=== PATIENT | female | born 1940 | race African-American/Black ===

== ENCOUNTER → 2017-01-08 | Outpatient (CLI) | payer MEDICARE, MEDICAID ==
[~2017-01-08] MED LIST: BETIMOL 0.5% OPH5 ML; BETIMOL 0.5% OPH5 ML OU; FLEXERIL 1010 MG/TAB PO; LIPITOR 40MG TA40 MG PO; MEDROL 4MG DOSPA4 MG PO; MEDROL8 M1 PO; NORCO 325 MG-51 TAB PO; NORVASC2.5 MG PO; PERCOCET 325 MG1 TA2 PO; PLAVIX 75MG TAB75 MG PO; TIROSINT25 MC1 PO; XALATAN EYE DROPS OD
[2017-01-08 10:23] LABS: CALCIUM 9.3 mg/dL (8.4-10.2); CREATININE, serum 1.25 mg/dL (0.52-1.25); POTASSIUM 4.7 mmol/L (3.4-5.0)
== END ==
LOC: COL.RAD 09:24
PROVIDERS: Thoracic Surgery (Cardiothoracic Vascular Surgery)
DX: I65.23 Occlusion and stenosis of bilateral carotid arteries (principal); Z01.812 Encounter for preprocedural laboratory examination
CPT/HCPCS: Q9967

== ENCOUNTER 2017-02-26 07:15 | Emergency (ER) | payer OTHER, MEDICAID ==
[~2017-02-26] VITALS: Ht 160 cm; Wt 63.6 kg
[~2017-02-26 07:15] MED LIST changes: -FLEXERIL 1010 MG/TAB PO; -MEDROL 4MG DOSPA4 MG PO
[2017-02-26 07:18] VITALS: BP 160/80; PULSE 95; TEMP 97.9
[2017-02-26] MEDS ORDERED: FLEXERIL 1010 MG/TAB PO (07:51)
[2017-02-26] MEDS ORDERED: MEDROL 4MG DOSPA4 MG PO (07:53)
[2017-02-26] MEDS ORDERED: PERCOCET 325 MG1 TA2 PO (07:53)
== END 2017-02-26 09:07 | disposition home or self-care (01) ==
LOC: COL.ER 07:15
DX: M25.551 Pain in right hip (principal); I10 Essential (primary) hypertension

== ENCOUNTER 2017-12-13 08:34 | Observation (INO) | payer OTHER, MEDICAID ==
[~2017-12-13] VITALS: Ht 160 cm; Wt 62.4 kg
[~2017-12-13 08:34] MED LIST changes: +FLEXERIL 1010 MG/TAB PO; +MEDROL 4MG DOSPA4 MG PO
[2017-12-13 08:59] LABS: BASO # 0.1 (0.0-0.2); BASO % 0.8 % (0.0-2.0); EOS # 0.1 (0.0-0.7); EOS % 1.5 % (0-4.0); GRAN # 4.2 (1.4-6.5); GRAN % 64.5 % (42.2-75.2); HEMATOCRIT 34.4 % (37.0-47.0); HEMOGLOBIN 10.3 g/dl (12.5-16.0); LYMPH # 1.7 (1.2-3.4); LYMPH % 26.9 % (20.0-51.0); MEAN CELL VOLUME 75 fl (80.0-100.0); MEAN CORPUSCULAR HEMOGLOBIN 23 pg (27.0-31.0); MEAN CORPUSCULAR HGB CONC 30 g/dl (33.0-37.0); MEAN PLATELET VOLUME 9.9 fl (7.4-10.4); MONO # 0.4 (0.1-0.6); PLATELET COUNT 327 K/mm3 (130-400); RED BLOOD COUNT 4.56 M/mm3 (4.10-5.30); REDCELL DISTRIBUTION WIDTH-CV 17.9 % (11.5-14.5)
[2017-12-13 09:07] LABS: ALANINE AMINOTRANSFERASE 39 U/L (9-52); ALBUMIN 3.1 gm/dL (3.5-5.0); ALKALINE PHOSPHATASE 75 U/L (50-136); ANION GAP 7 mmol/L (7-16); AST,SGOT 39 U/L (15-37); BILIRUBIN,TOTAL 0.3 mg/dL (0.0-1.0); BLOOD UREA NITROGEN 16 mg/dL (7-17); CALCIUM 8.1 mg/dL (8.4-10.2); CARBON DIOXIDE 22 mmol/L (22-30); CHLORIDE 110 mmol/L (98-107); CREATININE, serum 1.19 mg/dL (0.52-1.25); GLUCOSE 116 mg/dL (74-106); SODIUM 139 mmol/L (137-145); TOTAL PROTEIN 6.1 gm/dL (6.4-8.2)
[2017-12-13 09:12] LABS: ALCOHOL(ethanol),MEDICAL < 10 mg/dL
[2017-12-13 13:12] VITALS: BP 163/86; PULSE 104; TEMP 98.6
[2017-12-13] MEDS ORDERED: PRINIVIL5 MG PO (15:04)
[2017-12-13 17:36] VITALS: BP 129/81; PULSE 95; TEMP 98.3
[2017-12-13 21:58] VITALS: BP 128/60; PULSE 67; TEMP 98.5
[2017-12-14] VITALS (7 sets, daily range): BP systolic 100–121; BP diastolic 46–90; PULSE 87–100; TEMP 97.2–100.5
[2017-12-14 09:10] LABS: BASO % 0.5 % (0.0-2.0); EOS # 0.2 (0.0-0.7); EOS % 2.8 % (0-4.0); GRAN # 3.6 (1.4-6.5); GRAN % 60.2 % (42.2-75.2); LYMPH # 1.8 (1.2-3.4); MEAN CELL VOLUME 76 fl (80.0-100.0); MEAN CORPUSCULAR HGB CONC 30 g/dl (33.0-37.0); MEAN PLATELET VOLUME 9.9 fl (7.4-10.4); MONO # 0.4 (0.1-0.6); MONO % 7.3 % (1.7-9.3); PLATELET COUNT 304 K/mm3 (130-400); RED BLOOD COUNT 3.98 M/mm3 (4.10-5.30); REDCELL DISTRIBUTION WIDTH-CV 17.8 % (11.5-14.5)
[2017-12-14 09:13] LABS: HEMATOCRIT 30.3 % (37.0-47.0); MEAN CORPUSCULAR HEMOGLOBIN 23 pg (27.0-31.0)
[2017-12-14 09:22] LABS: ALBUMIN 2.8 gm/dL (3.5-5.0); CREATININE, serum 1.15 mg/dL (0.52-1.25); PHOSPHOROUS 3.1 mg/dL (2.5-4.5); POTASSIUM 4.3 mmol/L (3.4-5.0)
[2017-12-14] MEDS ORDERED: PERCOCET 325 MG1 TA2 PO (10:06)
[2017-12-15 05:41] VITALS: BP 108/53; PULSE 88; TEMP 98.7
[2017-12-15 06:49] LABS: BASO % 0.5 % (0.0-2.0); EOS # 0.3 (0.0-0.7); EOS % 4.1 % (0-4.0); GRAN # 3.2 (1.4-6.5); GRAN % 52.4 % (42.2-75.2); LYMPH # 1.9 (1.2-3.4); LYMPH % 31.4 % (20.0-51.0); MEAN CELL VOLUME 76 fl (80.0-100.0); MEAN CORPUSCULAR HGB CONC 28 g/dl (33.0-37.0); MONO # 0.7 (0.1-0.6); MONO % 11.4 % (1.7-9.3); PLATELET COUNT 265 K/mm3 (130-400); RED BLOOD COUNT 4.57 M/mm3 (4.10-5.30)
[2017-12-15 06:52] LABS: HEMATOCRIT 34.5 % (37.0-47.0); HEMOGLOBIN 9.7 g/dl (12.5-16.0); MEAN CORPUSCULAR HEMOGLOBIN 21 pg (27.0-31.0)
[2017-12-15 06:54] LABS: CALCIUM 8.8 mg/dL (8.4-10.2); CREATININE, serum 1.13 mg/dL (0.52-1.25); POTASSIUM 4.3 mmol/L (3.4-5.0)
[2017-12-15 09:41] VITALS: BP 94/62; PULSE 87; TEMP 98.6
[2017-12-15 10:20] VITALS: BP 110/52; BP 90/43; BP 99/51; PULSE 82; PULSE 87; PULSE 88
[2017-12-15 13:35] VITALS: BP 111/61; PULSE 79; TEMP 98.2
[2017-12-15 18:14] VITALS: BP 116/60; PULSE 79; TEMP 99.5
[2017-12-15 20:52] VITALS: BP 93/44; PULSE 91; TEMP 98.5
[2017-12-16 01:37] VITALS: BP 100/54; PULSE 86; TEMP 98.7
[2017-12-16 04:37] VITALS: BP 99/52; PULSE 85; TEMP 98.1
[2017-12-16 07:45] VITALS: BP 105/61; PULSE 79
[2017-12-16 11:38] VITALS: BP 102/52; PULSE 87; TEMP 98.1
[2017-12-16 15:50] VITALS: BP 105/90; PULSE 95; TEMP 98.6
== END 2017-12-16 16:38 | disposition home or self-care (01) ==
LOC: COL.ER 08:34 → JCC 10:54
PROVIDERS: Family Medicine; Surgery
DX: S82.831A Other fracture of upper and lower end of right fibula, initial encounter for closed fracture (principal); S42.301A Unspecified fracture of shaft of humerus, right arm, initial encounter for closed fracture; J98.11 Atelectasis; I51.7 Cardiomegaly; S20.211A Contusion of right front wall of thorax, initial encounter; S80.02XA Contusion of left knee, initial encounter; I10 Essential (primary) hypertension; H40.9 Unspecified glaucoma; Z86.73 Personal history of transient ischemic attack (TIA), and cerebral infarction without residual deficits; Z87.891 Personal history of nicotine dependence; Z80.3 Family history of malignant neoplasm of breast; E03.9 Hypothyroidism, unspecified; Z85.89 Personal history of malignant neoplasm of other organs and systems; Z92.3 Personal history of irradiation; Z92.21 Personal history of antineoplastic chemotherapy; Z79.01 Long term (current) use of anticoagulants; V43.52XA Car driver injured in collision with other type car in traffic accident, initial encounter; Y92.410 Unspecified street and highway as the place of occurrence of the external cause
CPT/HCPCS: A9284; G0378; G8987-GO; G8988-GO; J1170; J2405; J7030; J7120

== ENCOUNTER 2018-02-27 12:49 | Outpatient (CLI) | payer OTHER, MEDICAID ==
[~2018-02-27] VITALS: Ht 160 cm; Wt 60.9 kg
[~2018-02-27 12:49] MED LIST changes: +PRINIVIL5 MG PO; -TIROSINT25 MC1 PO; +TIROSINT75 MC1 PO
[2018-02-27 13:19] VITALS: BP 128/73; PULSE 90; TEMP 97.9
[2018-02-27] MEDS ORDERED: ASPIRIN 81M81 MG/TA2 PO (13:25)
[2018-02-27] MEDS ORDERED: LIPITOR 40MG TA40 MG PO (13:30)
== END 2018-02-27 13:56 | disposition home or self-care (01) ==
LOC: EUO 12:49
DX: M81.0 Age-related osteoporosis without current pathological fracture (principal)
CPT/HCPCS: J3489

== ENCOUNTER 2019-02-23 07:23 | Emergency (ER) | payer MEDICARE ==
[~2019-02-23] VITALS: Ht 157.5 cm; Wt 68.2 kg
[~2019-02-23 07:23] MED LIST changes: +ASPIRIN 81M81 MG/TA2 PO
[2019-02-23 07:25] VITALS: TEMP 97
[2019-02-23] MEDS ORDERED: NORVASC2.5 MG PO (07:37)
[2019-02-23] MEDS ORDERED: PEPCID 20MG TAB20 MG PO (07:38)
[2019-02-23 07:59] LABS: BASO # 0.1 (0.0-0.2); BASO % 0.8 % (0.0-2.0); EOS # 0.2 (0.0-0.7); EOS % 3.6 % (0-4.0); GRAN # 3.7 (1.4-6.5); GRAN % 59.9 % (42.2-75.2); HEMATOCRIT 29.7 % (37.0-47.0); HEMOGLOBIN 8.6 g/dl (12.5-16.0); LYMPH # 1.7 (1.2-3.4); LYMPH % 27.8 % (20.0-51.0); MEAN CELL VOLUME 71 fl (80.0-100.0); MEAN CORPUSCULAR HEMOGLOBIN 21 pg (27.0-31.0); MEAN CORPUSCULAR HGB CONC 29 g/dl (33.0-37.0); MEAN PLATELET VOLUME 9.9 fl (7.4-10.4); MONO # 0.5 (0.1-0.6); MONO % 7.7 % (1.7-9.3); PLATELET COUNT 386 K/mm3 (130-400); RED BLOOD COUNT 4.16 M/mm3 (4.10-5.30); REDCELL DISTRIBUTION WIDTH-CV 19.4 % (11.5-14.5)
[2019-02-23 08:14] LABS: ALBUMIN 3.1 gm/dL (3.5-5.0); BILIRUBIN,TOTAL 0.2 mg/dL (0.0-1.0); CALCIUM 8.1 mg/dL (8.4-10.2); CREATININE, serum 1.22 (0.52-1.25); SALICYLATE 1.3 mg/dL; TOTAL PROTEIN 6.4 gm/dL (6.4-8.2)
[2019-02-23] MEDS ORDERED: NEURONTIN300 MG/CAP PO (08:42)
[2019-02-23 08:44] LABS: TSH w REFLEX 35.6 uIU/mL (0.465-4.680)
[2019-02-23] MEDS ORDERED: SYNTHROID0.1 MG/TAB PO (09:27)
[2019-02-23 09:38] VITALS: BP 160/85; PULSE 89
== END 2019-02-23 09:39 | disposition home or self-care (01) ==
LOC: COL.ER 07:23
PROVIDERS: Emergency Medicine
DX: R25.2 Cramp and spasm (principal); E03.9 Hypothyroidism, unspecified; I10 Essential (primary) hypertension; Z79.02 Long term (current) use of antithrombotics/antiplatelets; Z79.82 Long term (current) use of aspirin
CPT/HCPCS: J7030

== ENCOUNTER 2019-04-09 10:32 | Emergency (ER) | payer MEDICARE ==
[~2019-04-09] VITALS: Ht 157.5 cm; Wt 68.2 kg
[~2019-04-09 10:32] MED LIST changes: +NEURONTIN300 MG/CAP PO; +PEPCID 20MG TAB20 MG PO; +SYNTHROID0.1 MG/TAB PO
[2019-04-09 10:36] VITALS: TEMP 97.3
[2019-04-09 11:21] LABS: BASO % 0.4 % (0.0-2.0); EOS # 0.2 (0.0-0.7); EOS % 2.4 % (0-4.0); GRAN # 5.1 (1.4-6.5); GRAN % 73.5 % (42.2-75.2); LYMPH % 14.5 % (20.0-51.0); MEAN CORPUSCULAR HGB CONC 29 g/dl (33.0-37.0); MEAN PLATELET VOLUME 9.8 fl (7.4-10.4); MONO # 0.6 (0.1-0.6); MONO % 8.9 % (1.7-9.3); PLATELET COUNT 395 K/mm3 (130-400); RED BLOOD COUNT 4.47 M/mm3 (4.10-5.30); REDCELL DISTRIBUTION WIDTH-CV 20.7 % (11.5-14.5)
[2019-04-09 11:33] LABS: HEMATOCRIT 29.7 % (37.0-47.0); HEMOGLOBIN 8.5 g/dl (12.5-16.0); MEAN CELL VOLUME 66 fl (80.0-100.0); MEAN CORPUSCULAR HEMOGLOBIN 19 pg (27.0-31.0)
[2019-04-09 11:34] LABS: ALBUMIN 3.2 gm/dL (3.5-5.0); BILIRUBIN,TOTAL 0.3 mg/dL (0.0-1.0); CALCIUM 8.7 mg/dL (8.4-10.2); CREATININE, serum 1.89 (0.52-1.25); POTASSIUM 4.5 mmol/L (3.4-5.0); TOTAL PROTEIN 6.7 gm/dL (6.4-8.2)
[2019-04-09 12:28] LABS: COLLECTION METHOD CATHETER
[2019-04-09 12:37] LABS: MUCOUS Present /lpf; PH 5 (5-8); SQUAMOUS EPITHELIAL 0-2 /hpf; URINE APPEARANCE Hazy; URINE BACTERIA None Seen /hpf; URINE BILIRUBIN Negative (NEGATIVE); URINE BLOOD Negative (NEGATIVE); URINE COLOR Yellow; URINE GLUCOSE Negative (NEGATIVE); URINE KETONE Negative (NEGATIVE); URINE LEUKOCYTE ESTERASE Negative (NEGATIVE); URINE NITRATE Negative (NEGATIVE); URINE PROTEIN(semi-quant) Negative (NEGATIVE); URINE RBC 0-2 /hpf; URINE UROBILINOGEN Negative (NEGATIVE)
[2019-04-09 14:00] VITALS: BP 127/60; PULSE 98
== END 2019-04-09 14:35 | disposition home or self-care (01) ==
LOC: COL.ER 10:32
PROVIDERS: Emergency Medicine
DX: R19.7 Diarrhea, unspecified (principal); E86.0 Dehydration; N28.89 Other specified disorders of kidney and ureter; Z79.02 Long term (current) use of antithrombotics/antiplatelets; Z79.82 Long term (current) use of aspirin
CPT/HCPCS: J7030

== ENCOUNTER 2019-08-03 13:47 | Emergency (ER) | payer MEDICARE ==
[~2019-08-03] VITALS: Ht 157.5 cm; Wt 66.4 kg
[2019-08-03 14:00] VITALS: BP 109/66; TEMP 98.7
[2019-08-03 14:46] LABS: BASO % 0.3 % (0.0-2.0); EOS % 0.3 % (0-4.0); GRAN # 3.8 (1.4-6.5); GRAN % 59.3 % (42.2-75.2); LYMPH # 1.9 (1.2-3.4); LYMPH % 29.9 % (20.0-51.0); MEAN CELL VOLUME 63 fl (80.0-100.0); MEAN CORPUSCULAR HGB CONC 27 g/dl (33.0-37.0); MEAN PLATELET VOLUME 9.7 fl (7.4-10.4); MONO # 0.6 (0.1-0.6); MONO % 9.9 % (1.7-9.3); PLATELET COUNT 357 K/mm3 (130-400); RED BLOOD COUNT 3.26 M/mm3 (4.10-5.30); REDCELL DISTRIBUTION WIDTH-CV 22.7 % (11.5-14.5)
[2019-08-03 14:48] LABS: HEMATOCRIT 20.6 % (37.0-47.0); MEAN CORPUSCULAR HEMOGLOBIN 17 pg (27.0-31.0)
[2019-08-03 14:49] LABS: HEMOGLOBIN 5.5 g/dl (12.5-16.0)
[2019-08-03 14:56] LABS: ALBUMIN 3.3 gm/dL (3.5-5.0); BILIRUBIN,TOTAL 0.3 mg/dL (0.0-1.0); CALCIUM 8.2 mg/dL (8.4-10.2); CREATININE, serum 1.38 (0.52-1.25); POTASSIUM 4.8 mmol/L (3.4-5.0); TOTAL PROTEIN 6.7 gm/dL (6.4-8.2)
[2019-08-03] MEDS ORDERED: NATURAL IRON65 MG PO ×2 (15:17→17:18)
[2019-08-03 16:00] VITALS: PULSE 94
[2019-08-03] MEDS ORDERED: NEURONTIN300 MG/CAP PO (17:18)
[2019-08-03] MEDS ORDERED: SYNTHROID0.1 MG/TAB PO (17:20)
== END 2019-08-03 15:57 | disposition home or self-care (01) ==
LOC: COL.ER 13:47 → EUO 13:47 → COL.ER 15:57
PROVIDERS: Physician Assistant
DX: D64.9 Anemia, unspecified (principal); E03.9 Hypothyroidism, unspecified; I10 Essential (primary) hypertension; Z85.850 Personal history of malignant neoplasm of thyroid; Z79.02 Long term (current) use of antithrombotics/antiplatelets; Z79.82 Long term (current) use of aspirin
CPT/HCPCS: J7030

== ENCOUNTER 2019-08-03 16:14 | Outpatient (CLI) | payer MEDICARE ==
[~2019-08-03] VITALS: Ht 157.5 cm; Wt 66.2 kg
[~2019-08-03 16:14] MED LIST changes: +NATURAL IRON65 MG PO
--- NOTE | 2019-08-03 16:30 | NUR ---
Pt transferred from ED by for blood transfusion x 1 unit. 18 gauge IV noted to left AC and 20 gauge IV to right AC. Discontinued 20 gauge intact at pt request. Denies pain and needs at this time.
[2019-08-03 17:03] VITALS: BP 124/40; PULSE 87; TEMP 98.1
[2019-08-03 17:18] VITALS: BP 106/88; PULSE 84; TEMP 98
[2019-08-03] MEDS ORDERED: NEURONTIN300 MG/CAP PO (17:18)
[2019-08-03] MEDS ORDERED: NATURAL IRON65 MG PO (17:18)
[2019-08-03] MEDS ORDERED: SYNTHROID0.1 MG/TAB PO (17:20)
[2019-08-03 17:25] VITALS: BP 106/88; PULSE 84; TEMP 98
[2019-08-03 17:48] VITALS: BP 112/88; PULSE 86; TEMP 98
[2019-08-03 18:26] VITALS: BP 133/56; PULSE 84; TEMP 98
[2019-08-03 18:49] VITALS: BP 141/60; PULSE 82; TEMP 98.1
== END 2019-08-03 19:00 | disposition home or self-care (01) ==
LOC: EUO 16:14
DX: D64.9 Anemia, unspecified (principal)
CPT/HCPCS: J7050; P9016

== ENCOUNTER → 2019-08-21 | Outpatient (CLI) | payer MEDICARE | LOC: COL.RAD 07:45 | DX: Z01.812 Encounter for preprocedural laboratory examination (principal); I65.01 Occlusion and stenosis of right vertebral artery; I65.23 Occlusion and stenosis of bilateral carotid arteries; G31.9 Degenerative disease of nervous system, unspecified; I67.82 Cerebral ischemia | CPT/HCPCS: A9585; Q9967 ==

== ENCOUNTER → 2019-09-04 | Outpatient (CLI) | payer MEDICARE | LOC: ZCOL.LAB 16:47 | DX: H60.501 Unspecified acute noninfective otitis externa, right ear (principal) ==

== ENCOUNTER 2019-10-28 16:21 | Emergency (ER) | payer MEDICARE ==
[~2019-10-28] VITALS: Ht 157.5 cm; Wt 66.8 kg
[2019-10-28 16:23] VITALS: TEMP 98.1
[2019-10-28 16:45] LABS: BASO % 0.3 % (0.0-2.0); EOS % 0.1 % (0-4.0); GRAN # 6.7 (1.4-6.5); HEMOGLOBIN 10.5 g/dl (12.5-16.0); LYMPH # 1.3 (1.2-3.4); LYMPH % 14.8 % (20.0-51.0); MEAN CELL VOLUME 83 fl (80.0-100.0); MEAN CORPUSCULAR HEMOGLOBIN 25 pg (27.0-31.0); MEAN CORPUSCULAR HGB CONC 30 g/dl (33.0-37.0); MEAN PLATELET VOLUME 9.9 fl (7.4-10.4); MONO # 0.8 (0.1-0.6); MONO % 8.6 % (1.7-9.3); PLATELET COUNT 332 K/mm3 (130-400); RED BLOOD COUNT 4.23 M/mm3 (4.10-5.30); REDCELL DISTRIBUTION WIDTH-CV 18.7 % (11.5-14.5)
[2019-10-28 16:55] LABS: ALANINE AMINOTRANSFERASE 19 U/L (9-52); ALBUMIN 3.2 gm/dL (3.5-5.0); ALKALINE PHOSPHATASE 83 U/L (50-136); ANION GAP 6 mmol/L (7-16); AST,SGOT 28 U/L (15-37); BILIRUBIN,TOTAL 0.8 mg/dL (0.0-1.0); BLOOD UREA NITROGEN 22 mg/dL (7-17); CALCIUM 7.9 mg/dL (8.4-10.2); CARBON DIOXIDE 29 mmol/L (22-30); CHLORIDE 101 mmol/L (98-107); CREATININE, serum 1.48 (0.52-1.25); GLUCOSE 117 mg/dL (74-106); POTASSIUM 4.4 mmol/L (3.4-5.0); SODIUM 137 mmol/L (137-145); TOTAL PROTEIN 6.6 gm/dL (6.4-8.2)
[2019-10-28 17:03] LABS: PARTIAL THROMBOPLASTIN TIME 21.3 SECONDS (26.0-37.0)
[2019-10-28 17:04] LABS: TROPONIN-I < 0.012 ng/mL (0.000-0.035)
[2019-10-28 17:16] LABS: HEMATOCRIT 34.9 % (37.0-47.0)
[2019-10-28 19:00] LABS: COLLECTION METHOD CLEAN CATCH
[2019-10-28 19:12] LABS: MUCOUS Present /lpf; PH 5 (5-8); URINE APPEARANCE Clear; URINE BACTERIA None Seen /hpf; URINE BILIRUBIN Negative (NEGATIVE); URINE BLOOD Negative (NEGATIVE); URINE COLOR Yellow; URINE GLUCOSE Negative (NEGATIVE); URINE KETONE Trace (NEGATIVE); URINE LEUKOCYTE ESTERASE 1+ (NEGATIVE); URINE NITRATE Negative (NEGATIVE); URINE PROTEIN(semi-quant) Negative (NEGATIVE); URINE RBC 0-2 /hpf; URINE UROBILINOGEN Negative (NEGATIVE)
[2019-10-28 22:00] VITALS: BP 135/75; PULSE 73
== END 2019-10-28 22:10 | disposition short-term general hospital (02) ==
LOC: COL.ER 16:21
PROVIDERS: Emergency Medicine
DX: I63.9 Cerebral infarction, unspecified (principal); G81.90 Hemiplegia, unspecified affecting unspecified side; R20.0 Anesthesia of skin; E03.9 Hypothyroidism, unspecified; I10 Essential (primary) hypertension
CPT/HCPCS: J7030; Q9967

== ENCOUNTER → 2019-11-12 | Outpatient (CLI) | payer MEDICARE | LOC: COL.RAD 13:12 | DX: R13.10 Dysphagia, unspecified (principal) ==

== ENCOUNTER 2024-09-16 14:01 | Emergency (ER) | payer MEDICARE, MEDICAID ==
[~2024-09-16] VITALS: Ht 157.5 cm; Wt 65.0 kg
[2024-09-16 14:08] VITALS: TEMP 97.2
[2024-09-16 14:41] LABS: BASO # 0.1 K/mm3 (0.0-0.2); BASO % 0.8 % (0.0-2.0); EOS # 0.5 K/mm3 (0.0-0.7); EOS % 7.4 % (0.0-4.0); GRAN # 2.5 K/mm3 (1.4-6.5); GRAN % 40.7 % (42.2-75.2); HEMOGLOBIN 11.4 g/dl (12.5-16.0); LYMPH # 2.6 K/mm3 (1.2-3.4); MEAN CELL VOLUME 75 fl (80.0-100.0); MEAN CORPUSCULAR HEMOGLOBIN 22 pg (27-31); MEAN CORPUSCULAR HGB CONC 29 g/dl (33.0-37.0); MEAN PLATELET VOLUME 10.2 fl (7.4-10.4); MONO # 0.5 K/mm3 (0.1-0.6); MONO % 8.9 % (1.7-9.3); PLATELET COUNT 423 K/mm3 (130-400); RED BLOOD COUNT 5.23 M/mm3 (4.10-5.30); REDCELL DISTRIBUTION WIDTH-CV 17.5 % (11.5-14.5)
[2024-09-16 14:56] LABS: INR 1.1 (0.8-3.0); PARTIAL THROMBOPLASTIN TIME 31.8 SECONDS (26.0-37.0); PROTHROMBIN TIME 11.5 SECONDS (9.7-12.8)
[2024-09-16 15:00] LABS: ALANINE AMINOTRANSFERASE 12 U/L (0-55); ALBUMIN 2.6 g/dL (3.4-4.8); ALKALINE PHOSPHATASE 69 U/L (40-150); ANION GAP 11 mmol/L (7-16); AST,SGOT 20 U/L (5-34); BILIRUBIN,TOTAL 0.3 mg/dL (0.2-1.2); BLOOD UREA NITROGEN 20 mg/dL (10-20); CALCIUM 8.9 mg/dL (8.4-10.2); CHLORIDE 109 mEq/L (98-107); CREATININE, serum 1.75 mg/dL (0.57-1.11); GLUCOSE 86 mg/dL (70-99); POTASSIUM 4.6 mEq/L (3.5-4.5); SODIUM 143 mEq/L (136-145); TOTAL PROTEIN 7.2 g/dl (6.2-8.1)
[2024-09-16 15:07] LABS: TROPONIN-I < 0.010 ng/mL (0.00-0.033)
[2024-09-16 15:25] LABS: COLLECTION METHOD CLEAN CATCH
[2024-09-16 15:38] LABS: URINE APPEARANCE TURBID (CLEAR/HAZY); URINE BLOOD NEGATIVE (NEGATIVE); URINE COLOR YELLOW (YELLOW); URINE GLUCOSE NEGATIVE (NEGATIVE); URINE KETONE TRACE (NEGATIVE); URINE NITRATE NEGATIVE (NEGATIVE); URINE PROTEIN(semi-quant) TRACE (NEGATIVE)
[2024-09-16] MEDS ORDERED: NS 500 ML IV SCH ×2 (15:45→16:30)
[2024-09-16 17:02] VITALS: BP 160/85; PULSE 92
== END 2024-09-16 17:02 | disposition home or self-care (01) ==
LOC: COL.ER 14:01
PROVIDERS: Emergency Medicine
DX: N17.9 Acute kidney failure, unspecified (principal); R01.1 Cardiac murmur, unspecified
CPT/HCPCS: J7040